=== PATIENT | female | born 1955 | race Caucasian/White ===

== ENCOUNTER 2018-05-27 22:25 | Observation (INO) | payer OTHER, SELFPAY ==
[2018-05-27 22:31] VITALS: BP 116/71; PULSE 65; RESP 14; O2SAT 98
--- NOTE | 2018-05-27 22:36 | DI.RAD.S_ITS ---
PROCEDURE: XR ANKLE LT MIN 3V INDICATIONS: rolled lt ankle TECHNIQUE: 3 views of the ankle were acquired. COMPARISON: [facility], , ANKLE 3 VIEWS LEFT, 01/08/2015, 9:17. FINDINGS: Bones: No dislocations. Ankle mortise is normally aligned. No suspicious bony lesions. There is a diagonal fracture across the high base of the medial malleolus and also across the distal fibular metadiaphyseal junction, deviated medially along the fracture plane such that the tibial plafond is subluxed medially, and the ankle mortise joint is abnormally widened at its medial aspect. There also is a thin posterior margin posterior malleolar fracture. Soft tissues: No tibiotalar joint effusion. Achilles tendon appears normal. IMPRESSION: Trimalleolar fracture, with the posterior malleolar fracture component difficult to visualize only on the lateral view. CT scanning may be warranted for further assessment. Abnormal medial widening of the ankle mortise joint. Unstable fracture. Dictated by: Henry Sousa M.D. on 05/28/2018 at 8:05 Approved by: Henry Sousa M.D. on 05/28/2018 at 8:08
[2018-05-28] VITALS (15 sets, daily range): BP systolic 92–122; BP diastolic 53–80; PULSE 54–83; RESP 13–18; TEMP 35.9–36.8; O2SAT 97–100; BMI 23.3
[2018-05-28 00:54] LABS: Add Manual Diff / Slide Review NO; Basophils Percent Auto 1.2 % (0-2); Eosinophils Percent Auto 0.8 % (2-4); Hematocrit 36.8 % (36-46); Hemoglobin 12.3 g/dL (12.0-16.0); Lymphocytes Percent Auto 28.9 % (25-40); Mean Corpuscular HGB Conc 33.4 % (30-36); Mean Corpuscular Hemoglobin 27.8 PG (26-34); Mean Corpuscular Volume 83.1 fL (80-100); Monocytes Percent Auto 7.6 % (3-14); Neutrophils Absolute Auto 5500 /uL (3000-5900); Neutrophils Percent Auto 61.5 % (50-75); Platelet Count 264 X10^3/uL (150-400); Red Blood Cell Count 4.43 X10^6/uL (4.0-5.2); Red Cell Distribution Width 13.6 % (11.6-14.8); White Blood Cell Count 8.9 X10^3/uL (4.5-11.0)
[2018-05-28 01:05] LABS: BUN Creatinine Ratio 28.3 (6-22); Blood Urea Nitrogen 17 mg/dL (7-17); Calcium 8.8 mg/dL (8.4-10.2); Carbon Dioxide 24 mmol/L (22-32); Chloride 106 mmol/L (98-107); Estimated Glomerular Filt Rate > 60.0 mL/min (>60); Glucose 110 mg/dL (80-110); HEMOLYSIS < 15 (0-50); Potassium 3.5 mmol/L (3.4-5.1); Sodium 140 mmol/L (137-145)
[2018-05-28] MEDS: HYDROMORPHONE 1 MG INJ IV (01:26)
--- NOTE | 2018-05-28 02:08 | ED.LOWEXIN ---
HPI - Extremity Injury (Lower) General Chief Complaint: Extremity Injury, Lower Stated Complaint: LEFT ANKLE INJURY Time Seen by Provider: 05/27/18 23:00 Source: patient Mode of arrival: wheelchair Limitations: no limitations History of Present Illness HPI Narrative: 63-year-old nonsmoker who presents for evaluation of severe left ankle pain. She had a friend were hiking the [place] and she was walking on uneven terrain when she inverted her left ankle and felt a snap. She then had an inability to weight bear. She denies any previous history of injury to her left ankle. She denies other injury. She denies numbness, tingling or weakness. Her pain is worse with ambulation and improves with rest. The she the fast food just prior to entering the emergency department complaint: ankle injury Onset (ago): hour(s) Type of Injury: inversion Place: street/outdoors Severity: severe Relieving factors: rest Exacerbating factors: movement Context: fall Associated symptoms: snap/pop sensation, swelling and unable to bear weight Other symptoms: none Related Data Allergies Allergy/AdvReac Type Severity Reaction Status Date / Time Penicillins [PENICILLINS] Allergy Unknown HIVES Unverified 11/14/17 13:04 Review of Systems Review of Systems All systems reviewed & are unremarkable except as noted in HPI and below Constitutional Denies chills, Denies fever(s), Denies lethargy and Denies weakness Eyes Denies change in vision, Denies eye discharge, Denies irritation and Denies loss of vision ENT Ears, Nose, Mouth, and Throat: Denies change in voice, Denies neck pain and Denies sore throat Cardiovascular Denies chest pain, Denies irregular heart rhythm, Denies lightheadedness, Denies palpitations, Denies dyspnea, Denies dyspnea on exertion and Denies orthopnea Respiratory Denies cough, Denies dyspnea, Denies dyspnea on exertion and Denies wheezing Gastrointestinal Gastrointestinal: Denies abdominal pain, Denies change in bowel habits, Denies diarrhea, Denies nausea and Denies vomiting Genitourinary Denies hematuria, Denies flank pain, Denies urinary incontinence and Denies urinary urgency Musculoskeletal Reports abnormal gait, Reports joint swelling, Reports limited range of motion and Denies neck pain Integumentary/Breasts Denies pruritus, Denies erythema, Denies rash and Denies wounds Neurologic Reports abnormal gait, Denies confusion, Denies loss of vision and Denies weakness Psychiatric Denies anxiety, Denies confusion, Denies depression, Denies homicidal ideation and Denies suicidal ideation Endocrine Denies palpitations Hematologic/Lymphatic Denies easy bruising Allergic/Immunologic Denies wheezing PFSH Surgical History History of third molar tooth extraction Status post dilation and curettage Family History Grandmother Age: 93 History of pneumonia Mother Age: 87 Short-term memory loss Grandmother Age: 93 Cerebrovascular accident (CVA), unspecified mechanism Sister Age: 64 Rheumatoid arthritis, involving unspecified site, unspecified rheumatoid factor presence Sister Age: 62 S/P breast lumpectomy Exam Narrative Exam Narrative: 63-year-old female in obvious distress, holding her left ankle Initial Vital Signs Initial Vital Signs: Vital Signs Pulse Rate 65 05/27/18 22:31 Respiratory Rate 14 05/27/18 22:31 Blood Pressure 116/71 05/27/18 22:31 Pulse Oximetry 98 05/27/18 22:31 Const General: cooperative, well developed and in distress Nutritional Appearance: well nourished Orientation: alert, awake, oriented x3 and not confused HENMT Head: normocephalic and atraumatic Ears: external ears normal and TM's normal bilaterally Nose: external nose normal and No nasal discharge Face and sinus: sinuses nontender, face symmetric, no sinus tenderness and No dry mucous membranes Mouth: oral mucosae normal and moist mucous membranes Teeth and gingiva: dentition normal Throat: tonsils normal and uvula midline Eyes General: appearance normal, both eyes and all related structures Eyelids: eyelids normal Conjunctivae: conjunctivae normal Sclera: sclerae normal Pupils: PERRL EOM: EOM intact bilaterally Resp Effort & Inspection: normal respiratory effort, able to speak in complete sentences, no respiratory distress and no use of accessory muscles Auscultation: clear to auscultation bilaterally, no rales, no rhonchi and no wheezes GI Inspection: non-distended Palpation: soft, no hepatosplenomegaly, No guarding, No pulsatile mass and No tender Auscultation: normal bowel sounds Back/Spine/Pelvis Back: No CVA tenderness Cervical Spine: cervical ROM normal and No pain with cervical ROM Thoracic/Lumbar Spine: thoracic and lumbar spine normal to inspection Skin General: no rashes or lesions noted, No jaundice and No petechiae Neuro General: alert, oriented x3, gait normal and no focal motor deficits Speech: speech normal Extrem General: no clubbing, cyanosis or edema, no pedal edema and no calf tenderness Left lower extremity: ankle Details: abnormal to inspection, tenderness, swelling and abnormal ROM; no abrasions and no lacerations Procedures Orthopedic Splinting/Casting Injury #1: Side: left Lower Extremity Injury Location: ankle Lower Extremity Immobilizer: posterior splint Course Orders Ordered: ED Orders 05/27/18 22:36 XR ankle LT min 3V Stat 05/28/18 00:45 Basic Metabolic Panel Stat Complete Blood Count AUTO DIFF Stat Discontinued Medications Hydromorphone HCl (Dilaudid) 1 mg IV NOW ONE Stop: 05/28/18 00:41 Last Admin: 05/28/18 01:26 Dose: 1 mg Consultations Consultation #1: Dr. Childers happy to accept. Posterior mold OCL. NPO, will take to OR later in the day Vital Signs - 8 hr 05/27/18 22:31 05/28/18 01:40 Pulse Rate 65 55 L Respiratory Rate 14 18 Blood Pressure 116/71 Blood Pressure [Right Arm] 110/67 Pulse Oximetry 98 98 MDM - Extremity Injury (Lower) Lab Data Result diagrams: 05/28/18 00:45 05/28/18 00:45 Lab Results 05/28/18 05/28/18 Range/Units 00:45 00:45 WBC 8.9 (4.5-11.0) X10^3/uL RBC 4.43 (4.0-5.2) X10^6/uL Hgb 12.3 (12.0-16.0) g/dL Hct 36.8 (36-46) % MCV 83.1 (80-100) fL MCH 27.8 (26-34) PG MCHC 33.4 (30-36) % RDW 13.6 (11.6-14.8) % Plt Count 264 (150-400) X10^3/uL Neut % (Auto) 61.5 (50-75) % Lymph % (Auto) 28.9 (25-40) % [place] % (Auto) 7.6 (3-14) % Eos % (Auto) 0.8 L (2-4) % Baso % (Auto) 1.2 (0-2) % Neut # (Auto) 5500 (8954-7025) /uL Sodium 140 (137-145) mmol/L Potassium 3.5 (3.4-5.1) mmol/L Chloride 106 (98-107) mmol/L Carbon Dioxide 24 (22-32) mmol/L BUN 17 (7-17) mg/dL Creatinine 0.60 (0.52-1.04) mg/dL Estimated GFR > 60.0 (>60) mL/min BUN/Creatinine Ratio 28.3 H (6-22) Glucose 110 (80-110) mg/dL Calcium 8.8 (8.4-10.2) mg/dL Discharge Plan Departure Patient Disposition: Admitted As Inpatient Clinical Impression: Bimalleolar ankle fracture Interventions: ED Discharge Assessment Last Done: 05/28/18 01:37 Admit Date/Time: 05/28/18 00:41 Admit Provider: Austin Childers
--- NOTE | 2018-05-28 02:41 | PC.NURSE ---
0210 Admitted to room 211 from ER, oriented to her room, showed how to used her call light, TV & bed controls. Pain level down to 2-3/10 medicated with 1 mg. Dilaudid in ER. LLE covered with Lyle wrap drsg CDI. Placed cast/splint IN ER, CMS intact, Lt. toes warm, denies any numbness & moving toes well. Advised NPO at this time, nothing to drink or eat. LLE elevated in pillow & she refused ice pack. Instructed not to get OOB without any assistance, call light within reached & bed alarm activated. Will cont. POC & monitor.
[2018-05-28] MEDS: SODIUM CHLORIDE 0.9% 1,000 ML 100 ML IV (06:57)
[2018-05-28] MEDS: HYDROMORPHONE 0.5 MG INJ 0.2 MG IV (07:06)
--- NOTE | 2018-05-28 09:59 | PM.PN.1 ---
Subjective Date Patient Seen: 05/28/18 Time Patient Seen: 09:59 Interval history: Patient admitted to hospital this morning from the emergency room with diagnosis of left bimalleolar fracture. Dr. Childers was consulted by phone and agreed to take patient. The plan is for left ankle ORIF by Dr. Childers later this afternoon. Patient is NPO. She is in a posterior lower leg splint. Receiving Dilaudid IV for pain. Exam Vital Signs (past 8 hours): - 05/28/18 06:02 05/28/18 09:02 Temperature 98.1 F 97.6 F Pulse Rate 55 L 55 L Respiratory Rate 16 16 Blood Pressure 92/53 L 107/69 Pulse Oximetry 99 99 Oxygen Delivery Method Room Air Narrative Exam Narrative: Alert, oriented no acute distress resting in bed. Legs. Posterior lower legs splint in place to left leg. No calf tenderness. Good blanching and sensation to all toes. No tenderness on palpation of right leg. Good pulses. Objective Labs Result Diagrams: 05/28/18 00:45 05/28/18 00:45 Labs: Laboratory Results - last 24 hr 05/28/18 05/28/18 00:45 00:45 WBC 8.9 RBC 4.43 Hgb 12.3 Hct 36.8 MCV 83.1 MCH 27.8 MCHC 33.4 RDW 13.6 Plt Count 264 Neut % (Auto) 61.5 Lymph % (Auto) 28.9 [place] % (Auto) 7.6 Eos % (Auto) 0.8 L Baso % (Auto) 1.2 Neut # (Auto) 5500 Sodium 140 Potassium 3.5 Chloride 106 Carbon Dioxide 24 BUN 17 Creatinine 0.60 Estimated GFR > 60.0 BUN/Creatinine Ratio 28.3 H Glucose 110 Calcium 8.8 Assessment & Plan (1) Bimalleolar ankle fracture: Qualifiers: Encounter type: initial encounter Fracture healing: Fracture type: closed Laterality: left Open fracture type: Qualified Code(s): S82.842A - Displaced bimalleolar fracture of left lower leg, initial encounter for closed fracture Current visit: Yes Status: Acute Plan: Assessment/Plan Narrative: Patient will remain NPO. Plan to have a left ankle ORIF done later today by Dr. Childers. Quality VTE Deep Vein Thrombosis/Pulmonary Embolism Present on Admission: No
[2018-05-28] MEDS: IBUPROFEN 600 MG TABLET PO (10:54)
--- NOTE | 2018-05-28 12:34 | CM.DANOTE ---
DCP/Assessment: Reviewed chart. Patient is a 63yr old female admitted to [facility] after fall. Patient currently with left ankle fracture, surgery scheduled for this afternoon. PCP is Dr. Bolaños. Primary payor is [employer]. Met with patient and spouse/Jesus at bedside explained CM/SW role. Patient reports that she is completely I with all ADL's prior to fall. Patient indicates that she fell while hiking. At this time needs unknown. Patient going to surgery today. Patient anticipates that she will be non weight bearing and may need knee scooter. Notified patient and spouse that CM team will follow closely. Patient requesting list of places to rent/buy/loan DME, list provided. P: Pending. Anticipate home with medically stable. PETAR Kumari Discharge Planning/Care Management CM Discharge Assessment Start: 05/28/18 12:30 Freq: Status: Active Protocol: Document 05/28/18 12:30 KJS (Rec: 05/28/18 12:34 KJS [id number]) Discharge Planning Assessment Assigned Weaving Machine Operator PETAR Kumari Contact Information Jesus Greco (spouse) Advance Directives? No Advance Directives on File No History Provided By Patient Significant Other Has Patient been admitted in last 30 No days? Prior Living Arrangements House Household Members significant other Type of transporation used prior to Drives own vehicle admit Willing to Return to Facility? No Independent with ADL's Yes Is patient alert and oriented? Yes Caregiver for Another No Barriers to Discharge No Discharge Plan Home Transportation Arrangement Family to provide transport home. Most likely will need priority boarding pass to return to [place]. Additional Comment Pending needs after surgery. Whiteboard Updated in Patient Room with Yes name and ext. # of Weaving Machine Operator Review Status In Process Please Provide Date Initial DC 05/28/18 Assessment Was Performed Next Review Type Continued Stay Review
--- NOTE | 2018-05-28 14:03 | PC.NURSE ---
Off floor to surgery at this time. Isaurakavon sent home with patient's significant other (except for her phone and glasses which she left in the room).
[2018-05-28] MEDS: LACTATED RINGERS 1,000 ML 42 ML IV (14:12)
--- NOTE | 2018-05-28 15:07 | PM.PREOP ---
Pre-operative Note Interval Note Pre-op Check: Yes History & Physical exam performed today by Physician Changes: No
--- NOTE | 2018-05-28 15:41 | SUR.OPER ---
Supine on padded OR bed, head on pillow, arms secured on padded arm boards at <90 degrees abduction, legs uncrossed, safety belt at thigh, tape over blanket over lower legs.
[2018-05-28] MEDS: CEFAZOLIN 1 GM VIAL IV (15:50)
--- NOTE | 2018-05-28 17:00 | PM.HP.1 ---
History of Present Illness Date Patient Seen: 05/28/18 Time Patient Seen: 15:00 Chief complaint: LEFT ANKLE INJURY Narrative: The patient is a 63-year-old woman who fell and injured her left ankle yesterday while hiking on [place]. She had immediate pain, deformity and difficulty bearing weight. She presented to the [facility] emergency room where x-rays revealed a bimalleolar ankle fracture with displacement. She denies previous problems with the ankle. She denies other injuries in her fall. Patient History Surgical History History of third molar tooth extraction Status post dilation and curettage Family & Social History Family History: Reviewed 05/28/18 by Austin Childers MD Social History: household members significant other Prior Living Arrangements House Safety & Behavioral: Feels Safe in Current Yes Environment Been Physically Hurt or No Threatened By a Person Suicidal Ideation Description None Suicide Plan Description No Plan Tobacco & Substance use: Smoking Status Never smoker alcohol intake frequency a few times a week Substance Use Type does not use Meds Home Medications Medication Instructions Recorded Confirmed Type No Known Home Medications 05/28/18 05/28/18 History Allergies Allergy/AdvReac Type Severity Reaction Status Date / Time Penicillins [PENICILLINS] Allergy Mild HIVES Verified 05/28/18 02:26 Review of Systems Review of Systems All systems reviewed & are unremarkable except as noted in HPI and below Exam Vital Signs (past 8 hours): - 05/28/18 09:02 05/28/18 14:13 Temperature 97.6 F 98.2 F Pulse Rate 55 L 57 L Respiratory Rate 16 16 Blood Pressure 107/69 105/68 Pulse Oximetry 99 100 Oxygen Delivery Method Room Air Const General: cooperative, healthy appearing and comfortable Nutritional Appearance: average body habitus Orientation: oriented x3 HENMT Head: normal to inspection Resp Effort & Inspection: normal respiratory effort Auscultation: clear to auscultation bilaterally Cardio Rate: regular rate Rhythm: regular rhythm GI Palpation: soft Skin Other: The patient's leg is in a splint. The emergency room doctor reported there was no skin lesions before the splint was placed. Neuro Other: Strength and sensation grossly intact throughout the lower extremity. Extrem Other: Lower extremity on the left side is in a splint. The toes are warm and pink. There is no gross deformity. Compartments are supple. Remain extremities are unremarkable full painless range of motion. Strength is 5/5 throughout the testable extremities. Objective Labs Result Diagrams: 05/28/18 00:45 05/28/18 00:45 Labs: Laboratory Results - last 24 hr 05/28/18 10 00:45 00:45 WBC 8.9 RBC 4.43 Hgb 12.3 Hct 36.8 MCV 83.1 MCH 27.8 MCHC 33.4 RDW 13.6 Plt Count 264 Neut % (Auto) 61.5 Lymph % (Auto) 28.9 [place] % (Auto) 7.6 Eos % (Auto) 0.8 L Baso % (Auto) 1.2 Neut # (Auto) 5500 Sodium 140 Potassium 3.5 Chloride 106 Carbon Dioxide 24 BUN 17 Creatinine 0.60 Estimated GFR > 60.0 BUN/Creatinine Ratio 28.3 H Glucose 110 Calcium 8.8 Assessment & Plan Plan: Assessment/Plan Narrative: Displaced bimalleolar ankle fracture. I discussed with the patient the has a displaced bimalleolar ankle fracture. We discussed the nature of this condition and further treatment options. I have recommended surgical repair. The nature of that procedure including the risks, benefits, alternatives, postoperative course and expected outcomes were discussed and all questions answered. She would like to proceed with surgery. Consent was obtained. Operative site confirmed and marked. Time Spent With Patient Time with patient: less than 15 minutes Quality VTE Deep Vein Thrombosis/Pulmonary Embolism Present on Admission: No
--- NOTE | 2018-05-28 17:05 | PM.OP.1 ---
Operative Date/Time/Diagnoses Date of procedure: 05/28/18 Time of procedure: 17:05 Pre-op diagnosis: Closed bimalleolar ankle fracture Post-op diagnosis: same Procedure & Clinicians Procedure: Open reduction internal fixation of left bimalleolar ankle fracture Same procedure as scheduled: Yes Indications: The patient presents today for surgical repair of displaced bimalleolar ankle fracture. The nature of the procedure including the risks and benefits, alternatives, postoperative course and expected outcome were discussed and all questions answered. Consent was obtained. Operative site confirmed and marked. Surgeon: Austin Childers Click Yes if Unassisted: Yes Anesthesia Type: General and Local Operative Notes Findings: The lateral malleolar fracture was a Sanchez B type with minimal comminution and reasonably good bone quality. The medial malleolar fracture was largely transverse but did extend above the top of the ankle mortise. I was not happy with the stability with 2 screws so a tension band wire was added which nicely stabilized the fragment. The syndesmosis was stable under fluoroscopic testing. Closure Type: primary Specimen(s): none sent Applied: cast(s) and implant(s) Estimated Blood Loss (mL): 20 Tourniquet time (min): 72 Procedure in detail: Patient was taken the operative suite and placed under general anesthesia. 2 g of Ancef were given prior to surgery. The leg was prepped and draped in usual sterile fashion and the tourniquet raised to 250 torr. A 10 cm incision was made laterally over the distal fibula. Sharp dissection was carried down to the fracture. The fracture was an oblique Sanchez B type configuration with minimal comminution. This was held anatomically reduced with a clamp the and a 3.5 mm placed across the fracture. This nicely stabilized the fracture. A static 7 hole 1/3 tubular plate was then placed over the lateral fibula with 3 bicortical screws below the fracture site and 4 bites cortical screws above the fracture site. The screws had good purchase. A 4 cm incision was then made over the medial malleolus. The fracture was largely transfers but extended above the level of the mortise. This was initially stabilized with 250 mm partially threaded cancellous screws. I was not happy with the overall stability with screws only. An 18 gauge tension band wire was placed around 1 of the screws which nicely compressed the fracture. Final AP and lateral fluoroscopy showed excellent position of the fracture and hardware. The syndesmosis was stable under fluoroscopic testing. The wounds were copiously irrigated. There were closed with 2 0 and 3 0 Vicryl. The skin was closed with kalina. Xeroform and sterile gauze dressings were applied. The patient was then placed into a well-padded AO plaster splint. She tolerated procedure well and was returned recovery room in good condition. Complications: none Condition: stable Disposition: PACU Plan for aftercare: The patient will be nonweightbearing for 4-6 weeks after the fracture. She will return to clinic in 2 weeks for splint removal and removal of kalina. She will then be placed into a Western walker and begin early ankle range of motion.
[2018-05-28] MEDS: OXYCODONE IR 5 MG TABLET PO (18:33)
[2018-05-28] MEDS: LACTATED RINGERS 1,000 ML 125 ML IV ×2 (18:37→23:45)
--- NOTE | 2018-05-28 19:37 | PC.NURSE ---
Addendum entered by Leeann Ang R.N. 05/28/18 22:42: around 193- pt vomited, pt stated she didn't feel nauseous. Pt given new emesis bag. discussed scds. pt compliant. will continue to monitor 2234- pt had another episode of vomiting. pt states she doesn't feel nauseous. Pt denies need for any anti nausea medication. pt thinks it is still related to Dilaudid she got downstairs in PACU. will continue to monitor. pt wiggles left toes. and does ankle waves. Original Note: Assumed care of pt form outgoing dylon pt in surgery. room door closed will wait for PACU. 1800- PACU report. Pt up to room via bed and RN. Pt doing great. awake and alert, still kind of fuzzy, as she forgets her train of thought every once in a while. at bedside. Pt drank water. ate some soup for dinner. stated she didn't really feel like anything else. Pt tolerated well. given pain medication. pt stated leg is throbbing and achy. still numb in areas but can feel pressure. Pt started on fluids per MD order. uses call light. not yet oop. non wt bearing to left leg. compliant with nursing staff. will continue to monitor pt for safety.
[2018-05-28] MEDS: ACETAMINOPHEN 325 MG TABLET 975 MG PO (21:51)
[2018-05-28] MEDS: ASPIRIN EC 81 MG TABLET PO (21:51)
[2018-05-28] MEDS: CEFAZOLIN 2 GM/100 ML FROZ.PIGGY IV (23:45)
[2018-05-28] MEDS: IBUPROFEN 400 MG TABLET PO (23:48)
[2018-05-29 00:28] VITALS: BP 97/48; PULSE 67; RESP 16; TEMP 35.9; O2SAT 97
[2018-05-29] MEDS: OXYCODONE IR 5 MG TABLET PO ×2 (03:36→12:18)
[2018-05-29 05:53] VITALS: BP 89/48; PULSE 69; RESP 16; TEMP 36.5; O2SAT 98
[2018-05-29 06:23] LABS: Hematocrit 31.6 % (36-46); Hemoglobin 10.6 g/dL (12.0-16.0); Mean Corpuscular HGB Conc 33.7 % (30-36); Mean Corpuscular Hemoglobin 28.2 PG (26-34); Mean Corpuscular Volume 83.8 fL (80-100); Platelet Count 206 X10^3/uL (150-400); Red Blood Cell Count 3.77 X10^6/uL (4.0-5.2); Red Cell Distribution Width 13.4 % (11.6-14.8); White Blood Cell Count 8.1 X10^3/uL (4.5-11.0)
[2018-05-29 08:00] VITALS: BP 104/60; PULSE 55; RESP 16; TEMP 36.3; O2SAT 100
[2018-05-29] MEDS: CEFAZOLIN 2 GM/100 ML FROZ.PIGGY IV (08:03)
[2018-05-29] MEDS: LACTATED RINGERS 1,000 ML 125 ML IV (08:03)
--- NOTE | 2018-05-29 08:35 | PM.PNPO.1 ---
Subjective Date Patient Seen: 05/29/18 Time Patient Seen: 07:20 Interval history: Patient is POD 1 status post Open reduction internal fixation of left bimalleolar ankle fracture by Dr. Childers. Patient is laying in bed comfortably without any signs of distress. Her is sleep bedside. She is hypotensive with her BP 89/48 recorded at 5:53am. She is asymptomatic. She had a previous episode of low BP yesterday and IV line was placed. She reports that her pain is manageable at this time with oxycodone 5mg. She reports she has not seen PT. She reports feeling nauseated last night however it has resolved. She denies any fever, chills, vomiting, SOB or chest pain. Patient seen again at 11:40am. BP last recorded at 104/60. Patient seen and cleared by PT, stable and ready for discharge on 05/29/18. Exam Vital Signs (past 8 hours): - 05/29/18 05:53 Temperature 97.7 F Pulse Rate 69 Respiratory Rate 16 Blood Pressure 89/48 L Pulse Oximetry 98 Oxygen Delivery Method Room Air Oxygen Flow Rate 0 Narrative Exam Narrative: Patient is AOx3. She is in no acute distress. Radial and dorsalis pedis pulses 2+ and symmteric. L LE long posterior splint with RENETTA wrap intact with no drainage. Patient is able to actively wiggle her L toes. Adequate muscle strength noted in dorsiflexion and plantarflexion of the R foot. Roll Builder strength intact bilaterally in UE. Sensation to light touch in tact in LE. DVT compression device noted on R LE. R calf is soft, non tender and compressible. Objective Labs Result Diagrams: 05/29/18 06:03 05/28/18 00:45 Labs: Laboratory Results - last 24 hr 05/29/18 06:03 WBC 8.1 RBC 3.77 L Hgb 10.6 L Hct 31.6 L MCV 83.8 MCH 28.2 MCHC 33.7 RDW 13.4 Plt Count 206 Assessment & Plan Post-op Postoperative Procedures Operation Date: 05/28/18 14:30 Actual Procedures Side Surgeon p ORIF Ankle Fracture Left Austin Childers MD Postoperative day: 1 Postoperative plan narrative: Continue IV normal saline for hypotension. Continue pain management. Start mobilizing and ambulating with PT. Likely to be discharged home once stable. Time Spent With Patient less than 15 minutes Quality VTE Deep Vein Thrombosis/Pulmonary Embolism Present on Admission: No
[2018-05-29] MEDS: ASPIRIN EC 81 MG TABLET PO (09:46)
[2018-05-29] MEDS: ACETAMINOPHEN 325 MG TABLET 975 MG PO (09:46)
--- NOTE | 2018-05-29 11:00 | PT.IIE ---
Current Diagnoses Displaced bimalleolar fracture of left lower leg, initial encounter for closed fracture (05/28/18) Surgery Performed Operation Date: 05/28/18 14:30 Actual Procedures p ORIF Ankle Fracture(Left) - Austin Childers MD Surgical History (Last Reviewed 05/28/18 @ 17:01 by Austin Childers MD) History of third molar tooth extraction Status post dilation and curettage Physical Therapy Inpatient Evaluation/Re-Eval M1 PT/OT-IP Prior Functional Status Start: 05/29/18 10:51 Freq: Status: Active Protocol: Document 05/29/18 10:52 [facility] (Rec: 05/29/18 11:00 [facility] [id number]) Medical Review Prior Functional Status Medical History Reviewed Yes Social History Household Members significant other Living Arrangements House Number of Floors (Floors) Two Floors Number of Stairs To Enter/Railing? 2 Home Equipment Crutches M2 PT-IP Current Condition Start: 05/29/18 10:51 Freq: Status: Active Protocol: Document 05/29/18 10:52 [facility] (Rec: 05/29/18 11:00 [facility] [id number]) Physical Therapy Current Condition Current Condition Evaluation Date 05/29/18 Treatment Diagnosis S/P surgery for closed B malleolar fx L Onset Date 05/27/18 Weight Bearing Status Weight Bearing Status Non-Weight Bearing M3 PT-IP Subjective Start: 05/29/18 10:51 Freq: Status: Active Protocol: Document 05/29/18 10:52 [facility] (Rec: 05/29/18 11:00 [facility] [id number]) Subjective Physical Therapy Visit Type Type Initial Evaluation Visit Start Time 10:30 Visit Stop Time 10:50 Total Visit Minutes 20 Therapy Pain Assessment Pain When Pain Assessed At Rest Pain Present Pain Present Pain Reported M4 PT-IP Mobility and Gait Start: 05/29/18 10:51 Freq: Status: Active Protocol: Document 05/29/18 10:52 [facility] (Rec: 05/29/18 11:00 [facility] [id number]) PT-Transfer Assessment Sit to and From Stand Sit to and from Stand Standby Assistance Equipment Transfer Assistive Device Front Wheeled Walker Transfers Transfer Destination Bed Transfer Ability Level of Assist Standby Assistance Comments Mobility Comments Dorothy demonstrates good mobility technique for sit- stand and transfers with non weight bearing on her Left LE M7 PT-IP Assessment and Plan Start: 05/29/18 10:51 Freq: Status: Active Protocol: Document 05/29/18 10:52 [facility] (Rec: 05/29/18 11:00 [facility] [id number]) PT Summary Assessment and Plan Summary Impairments Pain ROM Strength Balance Transfers Gait Activity Tolerance Assessment Summary Dorothy was seen this AM by PT for mobility assessment and to review her transfer techniques for home. She is a fit 63 year old and was easily able to transfer from sit-stand with a fww and demonstrated transfers to the bed without weight bearing on the left LE. We discussed use of crutches and scooter for home and she will be discharged today with her for home Goals Bed Mobility Goal Standby Assistance Transfer Goal Standby Assistance Other Goals goal today was education on non weight bearing status and transfers with SBA, Dorothy met this goal and will be discharged home today Frequency of Treatment Frequency Of Treatment Discharge Recommendations To Nursing Amount of Assist Needed Standby Assistance Discharge Recommendations PT Discharge Recommendations Home Other Discharge Recommendations Dorothy will discharge home with her today Equipment Needed for Home Before The patient has crutches for Discharge home and is getting a scooter as well
[2018-05-29] MEDS: IBUPROFEN 400 MG TABLET PO (11:08)
--- NOTE | 2018-05-29 13:46 | CM.DPC ---
DCP Discharge Home Per MD, pt is medically stable to d/c home today after further PT eval and recommendations. Per PT, pt is safe for d/c home with family assist, cane, and scooter. Plan: Patient to d/c home via family POV today and no SW needs at this time. PETAR Rene
--- NOTE | 2018-05-29 15:24 | PM.DS.1 ---
History of Present Illness Date Patient Seen: 05/29/18 Time Patient Seen: 11:40 Chief complaint: LEFT ANKLE INJURY Narrative: The patient presents today for surgical repair of displaced bimalleolar ankle fracture. The nature of the procedure including the risks and benefits, alternatives, postoperative course and expected outcome were discussed and all questions answered. Consent was obtained. Operative site confirmed and marked. Patient seen bedside. Discharge Providers Date of admission: 05/28/18 00:41 Consults: 05/28/18 17:38 Consult to Discharge Planning Routine Comment: Consult to Physical Therapy Evaluate & Treat Comment: Non weight-bearing left lower extremity Physician Instructions: Evaluate and Treat Consult to Respiratory Therapy Evaluate & Treat Comment: Physician Instructions: Evaluate and treat Discharge provider: Carol De Leon PA-C Discharge Date: 05/29/18 Summary Discharge Diagnosis: Closed bimalleolar ankle fracture Hospital Course: Patient was admitted status post Open reduction internal fixation of left bimalleolar ankle fracture by Dr. Childers on 05/28/18. Patient tolerated procedure well. Patient was transferred to floor and seen by PT who recommended patient be discharged home with outpatient PT. Her pain was well controlled with 5mg oxycodone. Patient was hypotensive with a BP of 89/48 on 05/29/18 and resolved with IV fluids. Patient was asymptomatic. Patient is stable and ready for discharge on 05/29/18. Patient is home to assist her upon discharge. R calf is soft, non tender and compressible. Status at Discharge Functional status at discharge: uses cane/walker Overall status at discharge: patient is progressing back to baseline Time Spent with Patient Less than 30 minutes Exam Vital Signs (past 8 hours): - 05/29/18 08:00 Temperature 97.3 F L Pulse Rate 55 L Respiratory Rate 16 Blood Pressure 104/60 Pulse Oximetry 100 Oxygen Delivery Method Room Air Oxygen Flow Rate 0 Narrative Exam Narrative: Patient is AOx3. She is in no acute distress. Radial and dorsalis pedis pulses 2+ and symmetric. L LE long posterior splint with RENETTA wrap intact with no drainage. Patient is able to actively wiggle her L toes. Adequate muscle strength noted in dorsiflexion and plantarflexion of the R foot. Nurse Technician strength intact bilaterally in UE. Sensation to light touch in tact in LE bilaterally. DVT compression device noted on R LE. R calf is soft, non tender and compressible. Objective Labs Result Diagrams: 05/29/18 06:03 05/28/18 00:45 Labs: Laboratory Results - last 24 hr 05/29/18 06:03 WBC 8.1 RBC 3.77 L Hgb 10.6 L Hct 31.6 L MCV 83.8 MCH 28.2 MCHC 33.7 RDW 13.4 Plt Count 206 Discharge Plan Discharge Plan Patient Disposition: Home Discharge comment: Continue aspirin for DVT prophylaxis Discharge Med Rec/Prescriptions Prescriptions: New acetaminophen 325 mg Tablet 975 mg PO TID Qty: 0 RF: 0 aspirin 81 mg Tablet,Delayed Release (Dr/Ec) 81 mg PO BID Qty: 0 RF: 0 oxycodone 5 mg Tablet 5 mg PO Q3HR PRN (Reason: Pain, Moderate (4-6)) Qty: 30 RF: 0 No Action No Known Home Medications RF: 0 Follow up/Referrals: Austin Childers MD [Physician] - 2 Weeks (Follow up at [facility] with Dr. Childers at scheduled appointment.) Provider Discharge Instructions Diet: Diet as Tolerated Activity: The patient will be nonweightbearing for 4-6 weeks. Skin/Wound/Dressing Care Report to your healthcare provider any signs of infection, such as:: chills, fever, night sweats, increased pain and unusual drainage Dressing: Keep clean and dry. Visit Report/Discharge Packet Instructions: DI for Open Reduction Internal Fixation Surgery Visit Report Forms: Stroke Signs & Symptoms Discharge Data Attending Provider: Austin Childers Admit Date/Time: 05/28/18 00:41 Discharges patient from system. Discharge Date/Time: 05/29/18 14:30 Quality VTE Deep Vein Thrombosis/Pulmonary Embolism Present on Admission: No
== END 2018-05-29 14:30 | disposition home or self-care (01) ==
LOC: ED 05-28 00:39 → AC 05-28 08:48
PROVIDERS: Admitting Provider Orthopaedic Surgery; Emergency Provider Emergency Medicine; Family Provider Family Medicine; Visit Provider Orthopaedic Surgery
PROC: (CPT 27814; principal; 2018-05-28 14:30)
DX: S82.842A Displaced bimalleolar fracture of left lower leg, initial encounter for closed fracture (principal); M25.572 Pain in left ankle and joints of left foot; Y93.01 Activity, walking, marching and hiking
CPT/HCPCS: 27814; 29505; 36415; 36591; 73610; 80048; 85025; 85027; 96374; 97161; 99281; 99284; G0378; J0690; J1100; J1170; J2405; J2704; J3010

== ENCOUNTER → 2018-12-24 10:11 | Outpatient (CLI) | payer OTHER, SELFPAY ==
[2018-05-28 01:50] VITALS: BMI 23.3
--- NOTE | 2018-12-24 | DI.MG.S_ITS ---
BILATERAL DIGITAL SCREENING MAMMOGRAM 3D/2D WITH CAD: 12/24/2018 CLINICAL: Routine screening. Family history of breast cancer. Comparison is made to exams dated: 07/06/2010 mammogram and 03/04/2008 mammogram - [facility]. There are scattered fibroglandular elements in both breasts. Current study was also evaluated with a Computer Aided Detection (CAD) system. There are benign calcifications in both breasts. No significant masses, calcifications, or other findings are seen in either breast. There has been no significant interval change. IMPRESSION: There is no mammographic evidence of malignancy. A 1 year screening mammogram is recommended. This exam was interpreted at Station ID: [id number]. NOTE: For mammograms, a report in lay terms will be sent to the patient. Approximately 15% of breast malignancies will not be visualized mammographically. In the management of a palpable breast mass, a negative mammogram must not discourage biopsy of a clinically suspicious lesion. Electronically Signed By: Gage melton/hilda:12/24/2018 11:28:25 copy to: Gloria Gonzalez letter sent: Normal Exam ACR BI-RADS Category 2: Benign Finding(s) 3342F
== END ==
PROVIDERS: Family Provider Family Medicine; PCP Obstetrics & Gynecology; Visit Provider Family Medicine
DX: Z12.31 Encounter for screening mammogram for malignant neoplasm of breast (principal); Z80.3 Family history of malignant neoplasm of breast
CPT/HCPCS: 77063; 77067

== ENCOUNTER → 2022-01-24 10:02 | Outpatient (CLI) | payer MEDICARE, OTHER, SELFPAY ==
[2018-05-28 01:50] VITALS: BMI 23.3
[2021-12-19 09:51] VITALS: BMI 23.3
--- NOTE | 2022-01-24 | DI.MG.S_ITS ---
BILATERAL DIGITAL SCREENING MAMMOGRAM 3D/2D WITH CAD: 01/24/2022 CLINICAL: Routine screening. Family history of breast cancer. Comparison is made to exams dated: 12/24/2018 mammogram, 07/06/2010 mammogram, and 03/04/2008 mammogram - [facility]. There are scattered fibroglandular elements in both breasts. Current study was also evaluated with a Computer Aided Detection (CAD) system. There are benign calcifications in both breasts. No significant masses, calcifications, or other findings are seen in either breast. There has been no significant interval change. IMPRESSION: BENIGN There is no mammographic evidence of malignancy. A 1 year screening mammogram is recommended. This exam was interpreted at Station ID: [id number]. NOTE: For mammograms, a report in lay terms will be sent to the patient. Approximately 15% of breast malignancies will not be visualized mammographically. In the management of a palpable breast mass, a negative mammogram must not discourage biopsy of a clinically suspicious lesion. Electronically Signed By: Madan meng/hilda:01/24/2022 12:21:13 letter sent: Normal Exam ACR BI-RADS Category 2: Benign Finding(s) 3342F
== END ==
PROVIDERS: Family Provider Family Medicine; PCP Nurse Practitioner Family; Referring Provider Nurse Practitioner Family; Visit Provider Nurse Practitioner Family
DX: Z12.31 Encounter for screening mammogram for malignant neoplasm of breast (principal); Z80.3 Family history of malignant neoplasm of breast
CPT/HCPCS: 77063; 77067